=== PATIENT | male | born 1955 | race Caucasian/White ===

== ENCOUNTER 2017-03-03 05:38 | Day surgery (SDC) | payer OTHER ==
[2017-03-03] MEDS ORDERED: ceFAZolin 2 GM/DEXTROSE 100 ML IV ONE (05:55)
[2017-03-03] MEDS ORDERED: LIDOCAINE 1% 2 ML INJ ID PRN (06:02)
[2017-03-03] MEDS ORDERED: LR 1,000 ML IV ONE (06:02)
--- NOTE | 2017-03-03 06:37 | CPEKG ---
Heart Rate: 64 RR Interval: 938 P-R Interval: 188 QRSD Interval: 84 QT Interval: 412 QTC Interval: 425 P Roselle: 42 QRS Roselle: -2 T Wave Roselle: 17 EKG Severity - NORMAL ECG - EKG Impression: SINUS RHYTHM Electronically Signed By: Taurus Jensen 03-Mar-2017 10:34:52
--- NOTE | 2017-03-03 06:50 | PDANEPAE ---
ANE History of Present Illness 62M squamous cell ca/.for wide local excision ANE Past Medical History - Cardiovascular History Hx Hypertension: Yes Hx Arrhythmias: No Hx Chest Pain: No Hx Coronary Artery / Peripheral Vascular Disease: No Hx CHF / Valvular Disease: No Hx Palpitations: No Cardiovascular History Comment: pcp monitors bp meds - Pulmonary History Hx COPD: No Hx Asthma/Reactive Airway Disease: No Hx Recent Upper Respiratory Infection: No Hx Oxygen in Use at Home: No Hx Sleep Apnea: No Sleep Apnea Screening Result - Last Documented: Positive Pulmonary History Comment: azucena triggers. asthma. 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 wears glasses for the computer only - Chronic Pain History Chronic Pain: Yes (lower back pain) - Surgical History Prior Surgeries: 12/25/15 excisional bx- right superior shoulder and neck with Jag. shoulder surgery. nataliya 30 years ago. tonsillectomy at 6 yo ANE Review of Systems Review of systems is: negative Review of Systems: - Exercise capacity METS (RN): 3 METS ANE Patient History - Allergies Allergies/Adverse Reactions: bacitracin Allergy (Verified 03/03/17 06:10) Other-Enter Comments neomycin [From Neosporin ([id number])] Allergy (Verified 03/03/17 06:10) Other-Enter Comments polymyxin B [From Neosporin ([id number])] Allergy (Verified 03/03/17 06:10) Other-Enter Comments - Home Medications Home medications: home medication list seen and reviewed Home Medications: Metoprolol Tartrate 12/24/15 [Last Taken 03/02/17] Atorvastatin Calcium 03/01/17 [Last Taken 03/01/17] Herbals/Supplements -Info Only 03/01/17 [Last Taken 03/01/17] Meloxicam 03/01/17 [Last Taken 03/01/17] metFORMIN HCL 03/01/17 [Last Taken 03/01/17] - NPO status NPO Since - Liquids (Date): 03/03/17 NPO Since - Liquids (Time): 04:00 NPO Since - Solids (Date): 03/02/17 NPO Since - Solids (Time): 18:00 - Anes Hx Anes Hx: no prior problems - Smoking Hx Smoking Status: Heavy smoker - Family Anes Hx Family Hx Anesthesia Complications: none ANE Labs/Vital Signs - Labs Result Diagrams: 03/03/17 06:22 - Vital Signs Blood Pressure: 145/94 Heart Rate: 62 Respiratory Rate: 16 O2 Sat (%): 93 Height: 177.8 cm Weight: 102.058 kg ANE Physical Exam - Airway Neck exam: FROM Mallampati Score: Class 1 Mouth exam: normal dental/mouth exam - Pulmonary Pulmonary: no respiratory distress - Cardiovascular Cardiovascular: regular rate and rhythym - ASA Status ASA Status: III ANE Anesthesia Plan Anesthesia Plan: GA with mask
[2017-03-03] MEDS ORDERED: MIDAZOLAM 2 MG/2 ML VIAL IVP ONE (06:51)
[2017-03-03 06:59] LABS: ANION GAP 12 mEq/L (8-16); CALCIUM 9.1 mg/dL (8.5-10.4); CARBON DIOXIDE 23 mEq/l (22-31); CHLORIDE 107 mEq/L (97-110); CREATININE 0.7 mg/dL (0.7-1.3); GLOMERULAR FILTRATION RATE > 60; GLUCOSE 119 mg/dL (70-100); POTASSIUM 4.2 mEq/L (3.5-5.2); SODIUM 142 mEq/L (134-144)
[2017-03-03] MEDS ORDERED: PROPOFOL/EMULSION 500 MG/50 ML BOTTLE IV ONE (06:59)
[2017-03-03] MEDS ORDERED: fentaNYL 100 MCG/2 ML INJ ONE (06:59)
[2017-03-03] MEDS ORDERED: LIDOCAINE 2% 5 ML SDV ONE (07:03)
[2017-03-03] MEDS ORDERED: BUPIVACAINE 0.5% 30 ML SDV ONE (07:14)
--- NOTE | 2017-03-03 07:14 | PDHPUP ---
History & Physical Update H&P update statement: This history and physical update is based on an assessment of the patient which was completed after admission or registration (within 24 hours), but prior to the surgery/procedure. H&P update: H&P reviewed & patient examined, no change in patient's condition since H&P completed
[2017-03-03] MEDS ORDERED: LIDOCAINE 1% 300 MG/30 ML SDV ONE (07:26)
[2017-03-03] MEDS ORDERED: SODIUM BICARBONATE 10 MEQ/10 ML SYR IVP ONE (07:26)
[2017-03-03] MEDS ORDERED: KETOROLAC 30 MG/1 ML SDV ONE (07:53)
[2017-03-03] MEDS ORDERED: fentaNYL 100 MCG/2 ML INJ IVP PRN (07:59)
[2017-03-03] MEDS ORDERED: ONDANSETRON 4 MG/2 ML VIAL IVP PRN (07:59)
[2017-03-03] MEDS ORDERED: OXYCODONE/APAP 5/325 TAB PO PRN (07:59)
[2017-03-03] MEDS ORDERED: HYDROmorphONE/DILAUDID 1 MG/ML INJ IVP PRN (07:59)
[2017-03-03] MEDS ORDERED: ACETAMINOPHEN 500 MG TAB PO PRN (07:59)
[2017-03-03] MEDS ORDERED: ALBUTEROL 3 ML DEYVIAL IH PRN (07:59)
[2017-03-03] MEDS ORDERED: NALOXONE HCL 0.4 MG/ML INJ IVP PRN (07:59)
--- NOTE | 2017-03-03 08:13 | POSTANESTH ---
Post Anesthetic Evaluation Cardiovascular Status: Normal, Stable Respiratory Status: Normal, Stable Level of Consciousness/Mental Status: Can Participate in Eval Pain Control: Adequate, Prn Tx Ordered Nausea/Vomiting Control: Adequate, Prn Tx Ordered Complications Possibly Related to Anesthesia: None Noted
[2017-03-03] MEDS ORDERED: OXYCODONE/APAP 5/325 TAB ONE (08:30)
[2017-03-03 09:37] VITALS: RESP 16
[2017-03-03 09:38] VITALS: O2SAT 94
[2017-03-03 09:40] VITALS: BP 152/89; PULSE 62; TEMP 98.6
--- NOTE | 2017-03-03 10:07 | POSTOPPROG ---
Post Op Note Date of Operation: 03/03/17 Surgeon: Jerry Rm Spanish Lecturer: Susana BEGUM Anesthesiologist: Wale Anesthesia: LMA Pre-op Diagnosis: Squamous cell carcinoma Post-op Diagnosis: same Indication: pain Procedure: Excisional biopsy of squamous cell carcinoma Findings: Superficial mass on left subscapular region Inf/Abcess present in the surg proc area at time of surgery?: No Depth: Superfical (Skin SQ) EBL: Minimal Specimen(s): squamous cell carcinoma mass
--- NOTE | 2017-03-09 11:46 | GOP ---
[f rep st] OPERATIVE REPORT DATE OF OPERATION: 03/03/2017 SURGEON: Jerry Rm MD MELTER SUPERVISOR OPEN HEARTH FURNACE: Susana Fischer PA-C. ANESTHESIOLOGIST: Dr. Echevarria. 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 POSTOPERATIVE DIAGNOSIS: Squamous cell carcinoma of the left upper back. PROCEDURE PERFORMED: Wide excision resection of squamous cell carcinoma with advancement flap closure. FINDINGS: Grossly clear margins/ path pending DESCRIPTION OF PROCEDURE: Patient taken to the operating room where he received satisfactory general endotracheal anesthesia by Dr. Echevarria. He was placed in a prone position. After induction of general endotracheal anesthesia , he was prepped and draped in the usual sterile fashion. An elliptical skin incision was made to excise the previously biopsied squamous cell cancer with a good 1.5 cm margin on all sides. Full-thickness excision was done. The specimen was sent to Pathology. Hemostasis was assured. The flaps were elevated up above and below and advanced until they could be closed directly with 2-0 Vicryl sutures for the subcutaneous tissue and a 3-0 Monoderm Quill suture for the skin. Wound was further infiltrated with 0.5% Marcaine. He tolerated the procedure well. There were no complications. There were no drains. Copy requested to: Dr. Sanchez Jaramillo /[id number]/MODL MTDD
== END 2017-03-03 09:33 | disposition home or self-care (01) ==
LOC: FSGY 05:38
PROVIDERS: ATTEND Surgery
PROC: 0HB6XZZ Excision of Back Skin, External Approach (ICD-10-PCS; principal; 2017-03-03 07:15)
PROC: 0HX6XZZ Transfer Back Skin, External Approach (ICD-10-PCS; principal; 2017-03-03 07:15)
DX: D04.5 Carcinoma in situ of skin of trunk (principal)
CPT/HCPCS: J0690; J1885; J2250; J2704; J3010